=== PATIENT | female | born 1935 | race Caucasian/White ===

== ENCOUNTER 2017-02-21 10:14 | Emergency (ER) | payer OTHER ==
[2017-02-21 10:23] VITALS: BP 133/67; BMI 18.8
--- NOTE | 2017-02-21 11:06 | DR.GENAD ---
HPI - PCP Primary Care Physician: MIRIAM - HPI Comment HPI Comment: Headache; generalised weakness - Complaint/Symptoms Chief Complaint Doctors Comments: 1) She is undergoing treatment for UTI. Started on antibiotics on 02/17/17. She was having pelvic pain. Her antibiotics was twice a day. last dose was about 24 hrs.ago. 2) Her headache started early yesterday, she read up on the papers from the pharcy and it says the medication may cause H/A. She called into the pharmacy and was advised t stop taking the medication and go see her doctor today. She saw the WE[facility] LOSS SALES CONSULTANT at [facility] this morning and was referred to the E/R. The h/a is located on her crown and is throbbing. She denies dizziness but she claims her gait is off a bit. Chief Complaint:: PT C/O UTI, HEADACHE, WEAKNESS, AND DIZZINESS. PT STATES THIS HAS BEEN GOING ON SINCE FRIDAY. PT WAS DIAGNOSES WITH UTI FRIDAY AND SHE HAS BEEN TAKING BACTRIM BID. PT STATES SHE HAS BEEN JUST FEELING OF HER SYMPTOMS ARE GETTING WORSE OF THE COURSE OF THE PAST COUPLE OF DAYS. - Nurses notes reviewed Nurses Notes Review: Yes - Source History Provided: Patient - Mode of Arrival Mode of Arrival: Ambulatory - Timing Onset of Chief Complaint: 02/19/17 - Location Location: On crown PMH - PMH Past Medical History: Yes Past Medical History Comment: CYSTISIS Past Surgical History: Yes Surgical History: Appendectomy, Hysterectomy, Other Past Surgical History Comment: LEFT INGUINAL HERNIA REPAIR - Family History History of Family Medical Conditions: No - Social History Does any household member use tobacco: No Alcohol Use: None Do you use any recreational Drugs:: No Lives With: Alone Lives Where: Home - infectious screening In the last 2 months have you had wt loss of >10#?: NO Have you had fever, night sweats or hemotysis?: No Have you traveled outside the country in the last 6 months?: No Isolation: Standard ROS - Review of Systems Constitutional: Weakness Eyes: No Symptoms Reported ENTM: No Symptoms Reported Respiratoy: No Symptoms Reported Gastrointestinal/Abdominal: No Symptoms Reported Genitourinary: No Symptoms Reported Neurological: Headache Musculoskeletal: No Symptoms Reported Hematologic/Lymphatic: No Symptoms Reported Endocrine: No Symptoms Reported Psychiatric: No Symptoms Reported All Other Systems: Reviewed and Negative PE - Vital Signs Vitals: Pulse Rate 80 Respiratory Rate 18 Blood Pressure 133/67 O2 Sat by Pulse Oximetry 97 - General Limitations: No Limitations General Appearance: Alert, In No Apparent Distress - Head Head Exam: Normal Inspection - Eyes Eye exam: Normal Appearance - ENT ENT Exam: Normal Exam External Ear Exam: Normal External Inspection TM/Canal Exam: Bilateral Normal Nose Exam: Normal Nose Exam Mouth Exam: Normal Inspection Throat Exam: Normal Inspection - Neck Neck Exam: Normal Inspection - Chest Chest Inspection: Normal Inspection - Respiratory Respiratory Exam: Normal Lung Sounds Bilat Respiratory Exam: Bilateral Clear to Auscultation - Cardiovascular Cardiovascular Exam: Regular Rate, Normal Rhythm - Abdominal Exam Abdominal Exam: Normal Inspection, Normal Bowel Sounds, Soft - Extremities Extremities Exam: Normal Inspection - Back Back Exam: Normal Inspection - Neurologic Neurological Exam: Alert, Oriented X3 - Psychiatric Psychiatric Exam: Normal Affect, Normal Mood - Skin Skin Exam: Warm, Dry, Intact, Normal Color Course - Reevaluation 1st: Improved ROR - Labs Reviewed Result Diagrams: 02/21/17 11:20 02/21/17 11:20 Laboratory: WBC 8.4 X10^3/uL (3.6-10.0) 02/21/17 11:20 RBC 5.23 X10^6/uL (3.5-5.4) 02/21/17 11:20 Hgb 15.1 g/dL (12.0-16.0) 02/21/17 11:20 Hct 45.3 % (36.0-47.0) 02/21/17 11:20 MCV 86.5 fL (80.0-100.0) 02/21/17 11:20 MCH 28.8 pg (27.0-34.0) 02/21/17 11:20 MCHC 33.3 g/dL (33.0-35.0) 02/21/17 11:20 RDW 13.8 % (11.6-16.5) 02/21/17 11:20 Plt Count 195 X10^3/uL (150.0-450.0) 02/21/17 11:20 MPV 9.1 fL (7.4-11.0) 02/21/17 11:20 Neut % 71.9 % (42.0-75.0) 02/21/17 11:20 Lymph % 18.8 % (21.0-51.0) L 02/21/17 11:20 [place] % 7.8 % (0.0-13.0) 02/21/17 11:20 Eos % 0.8 % (0.9-2.9) L 02/21/17 11:20 Baso % 0.7 % (0.2-1.0) 02/21/17 11:20 Neut # 6.0 x10^3/uL (2.2-4.8) H 02/21/17 11:20 Lymph # 1.6 X10^3/uL (1.3-2.9) 02/21/17 11:20 [place] # 0.6 x10^3/uL (0.3-0.8) 02/21/17 11:20 Eos # 0.1 x10^3/uL (0.0-0.2) 02/21/17 11:20 Baso # 0.1 X10^3/uL (0.0-0.1) 02/21/17 11:20 Absolute Nucleated RBC 0.0 /100WBC 02/21/17 11:20 Sodium 137 mmol/L (136-145) 02/21/17 11:20 Corrected Sodium TNP 02/21/17 11:20 Potassium 4.8 mmol/L (3.5-5.1) 02/21/17 11:20 Chloride 101 mmol/L (98-107) 02/21/17 11:20 Carbon Dioxide 27.0 mmol/L (21-32) 02/21/17 11:20 BUN 28 mg/dL (7-18) H 02/21/17 11:20 Creatinine 1.03 mg/dL (0.55-1.02) H 02/21/17 11:20 Est GFR (MDRD) Af Amer > 60 (>60) 02/21/17 11:20 Est GFR (MDRD) Non-Af 55 (>60) L 02/21/17 11:20 Glucose 98 mg/dL (65-99) 02/21/17 11:20 Calcium 9.9 mg/dL (8.5-10.1) 02/21/17 11:20 Corrected Calcium TNP 02/21/17 11:20 Total Bilirubin 0.40 mg/dL (0.2-1.0) 02/21/17 11:20 AST 34 Units/L (15-37) 02/21/17 11:20 ALT 21 Units/L (12-78) 02/21/17 11:20 Alkaline Phosphatase 94 Units/L (46-116) 02/21/17 11:20 Total Protein 7.8 g/dL (6.4-8.2) 02/21/17 11:20 Albumin 3.9 g/dL (3.4-5.0) 02/21/17 11:20 Globulin 3.9 g/dL (2.5-4.5) 02/21/17 11:20 Albumin/Globulin Ratio 1.0 Ratio (1.1-2.1) L 02/21/17 11:20 TSH 3rd Generation 1.594 uIU/mL (0.358-3.74) 02/21/17 11:20 Specimen Type Clean catch urine 02/21/17 10:59 Urine Color Yellow (YELLOW) 02/21/17 10:59 Urine Appearance Clear (CLEAR) 02/21/17 10:59 Urine pH 6.0 (5.0 - 8.0) 02/21/17 10:59 Ur Specific [place] 1.015 (1.000-1.030) 02/21/17 10:59 Urine Protein 1+ (NEGATIVE) 02/21/17 10:59 Urine Glucose (UA) Negative (NEGATIVE) 02/21/17 10:59 Urine Ketones Negative (NEGATIVE) 02/21/17 10:59 Urine Occult Blood 4+ (NEGATIVE) 02/21/17 10:59 Urine Nitrite Negative (NEGATIVE) 02/21/17 10:59 Urine Bilirubin Negative (NEGATIVE) 02/21/17 10:59 Urine Urobilinogen Normal (NORMAL) 02/21/17 10:59 Ur Leukocyte Esterase 1+ (NEGATIVE) 02/21/17 10:59 Urine RBC Rare /HPF (NEGATIVE) 02/21/17 10:59 Urine WBC Rare /HPF (NEGATIVE) 02/21/17 10:59 Ur Squamous Epith Cells Rare /HPF (NEGATIVE) 02/21/17 10:59 Amorphous Sediment 1+ /HPF (NEGATIVE) 02/21/17 10:59 Urine Bacteria Negative /HPF (NEGATIVE) 02/21/17 10:59 Ur Culture Indicated? No/not indicated 02/21/17 10:59 - XRAY XRAY Interpreted by: Radiologist (CT Brain: no acute intracranial pathology) - Diagnosis Discharge Problem: Weakness, Headache, UTI (urinary tract infection) - Discharge Plan Disposition: 01 HOME, SELF-CARE Condition: Stable - Follow ups/Referrals Follow ups/Referrals: MDMisc [Primary Care Provider] - 3 days - Instructions
[2017-02-21 11:20] LABS: BILIRUBIN,URINE NEGATIVE (NEGATIVE); BLOOD/HEMOGLOBIN,URINE 4+ (NEGATIVE); GLUCOSE, URINE NEGATIVE (NEGATIVE); KETONES,URINE NEGATIVE (NEGATIVE); LEUKOCYTE ESTERASE ,URINE 1+ (NEGATIVE); NITRITES,URINE NEGATIVE (NEGATIVE); PROTEIN,URINE 1+ (NEGATIVE); UROBILINOGEN,URINE NORMAL (NORMAL)
[2017-02-21 11:33] LABS: BASOPHILS # (AUTO) 0.1 X10^3/uL (0.0-0.1); BASOPHILS % (AUTO) 0.7 % (0.2-1.0); EOSINOPHILS # (AUTO) 0.1 x10^3/uL (0.0-0.2); EOSINOPHILS % (AUTO) 0.8 % (0.9-2.9); HEMATOCRIT 45.3 % (36.0-47.0); HEMOGLOBIN 15.1 g/dL (12.0-16.0); LYMPHOCYTES # (AUTO) 1.6 X10^3/uL (1.3-2.9); LYMPHOCYTES % (AUTO) 18.8 % (21.0-51.0); MEAN CORPUSCULAR HEMOGLOBIN 28.8 pg (27.0-34.0); MEAN CORPUSCULAR HGB CONC 33.3 g/dL (33.0-35.0); MEAN CORPUSCULAR VOLUME 86.5 fL (80.0-100.0); MEAN PLATELET VOLUME 9.1 fL (7.4-11.0); MONOCYTES # (AUTO) 0.6 x10^3/uL (0.3-0.8); MONOCYTES % (AUTO) 7.8 % (0.0-13.0); NEUTROPHILS % (AUTO) 71.9 % (42.0-75.0); PLATELET COUNT 195 X10^3/uL (150.0-450.0); RED BLOOD COUNT 5.23 X10^6/uL (3.5-5.4); RED CELL DISTRIBUTION WIDTH 13.8 % (11.6-16.5); WHITE BLOOD COUNT 8.4 X10^3/uL (3.6-10.0)
[2017-02-21 11:41] LABS: APPEARANCE,URINE CLEAR (CLEAR); COLOR,URINE YELLOW (YELLOW)
[2017-02-21 11:42] LABS: AMORPHOUS SEDIMENT,UR 1+ /HPF (NEGATIVE); BACTERIA,URINE NEGATIVE /HPF (NEGATIVE); RBC,URINE RARE /HPF (NEGATIVE); SQUAMOUS EPITHELIAL CELL,UR RARE /HPF (NEGATIVE)
[2017-02-21 12:07] LABS: ALANINE AMINOTRANSFERASE 21 Units/L (12-78); ALBUMIN 3.9 g/dL (3.4-5.0); ALKALINE PHOSPHATASE 94 Units/L (46-116); ASPARTATE AMINO TRANSFERASE 34 Units/L (15-37); BLOOD UREA NITROGEN 28 mg/dL (7-18); CALCIUM 9.9 mg/dL (8.5-10.1); CHLORIDE 101 mmol/L (98-107); CREATININE 1.03 mg/dL (0.55-1.02); SODIUM 137 mmol/L (136-145); TOTAL PROTEIN 7.8 g/dL (6.4-8.2); TSH (3RD GENERATION) 1.594 uIU/mL (0.358-3.74); eGFR BLACK RACES > 60 (>60); eGFR NON BLACK RACES 55 (>60)
--- NOTE | 2017-02-21 12:14 | CT ---
HISTORY: Headache, dizziness Study: CT brain without contrast Comparison: No priors Technique: Multiple axial images of the brain were obtained from the skull base to the vertex without administra tion of IV contrast. Coronal and sagittal images are also reviewed. Dose reduction techniques utilize d automatic exposure control. Findings: No acute intraparenchymal hemorrhage or mass can be identified. No extra-axial fluid collections are seen. No alteration in the attenuation of the brain parenchyma can be identified to suggest acute o r subacute ischemic change. The ventricular system is symmetric and nondilated. There is chronic pe riventricular white matter disease observed and age-appropriate generalized atrophy. IMPRESSION: 1. No acute intracranial process can be identified. 2. 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 3. Age-appropriate atrophic changes are seen. Reported By:
== END 2017-02-21 12:41 | disposition home or self-care (01) ==
LOC: ER 10:34
DX: N39.0 Urinary tract infection, site not specified (principal); R53.1 Weakness; R51 Headache
CPT/HCPCS: 36415; 70450; 80053; 81001; 84443; 85025; 99282; 99283

== ENCOUNTER 2017-05-18 20:30 | Emergency (ER) | payer OTHER ==
[2017-05-18 20:41] VITALS: BP 105/70; BMI 19.2
--- NOTE | 2017-05-19 00:09 | DR.GENAD ---
HPI - PCP Primary Care Physician: NFD - Complaint/Symptoms Chief Complaint:: Pain in upper left back Self Treatment fo Chief Complaint: Patient DX with PNA yesterday and [facility]. Patient sees a DR in [place] that she is going to see tomorrow. [facility] told her that if anything changed she should go to the ER. - Nurses notes reviewed Nurses Notes Review: Yes - Source History Provided: Patient, Family Member - Timing Onset of Chief Complaint: 05/18/17 PMH - PMH Past Medical History: Yes Past Medical History Comment: had gastic ulcers once and hpyloi once. No other medical hx only OTC acid reflux medication Past Surgical History: Yes Surgical History: Appendectomy, Hysterectomy Past Surgical History Comment: Ing hernia repair - Family History History of Family Medical Conditions: No - Social History Does patient currently use any type of tobacco product: No Have you used tobacco products in the last 12 months: No Type of Tobacco Use: None Does any household member use tobacco: No Alcohol Use: None Do you use any recreational Drugs:: No Lives With: Alone Lives Where: Home - infectious screening In the last 2 months have you had wt loss of >10#?: NO Have you had fever, night sweats or hemotysis?: No Have you traveled outside the country in the last 6 months?: No Isolation: Standard PE - Vital Signs Vitals: Temperature 97.9 F Pulse Rate 88 Respiratory Rate 18 Blood Pressure 105/70 O2 Sat by Pulse Oximetry 98 ROR - Labs Reviewed Result Diagrams: 05/19/17 00:15 05/19/17 00:15 Laboratory: WBC 10.8 X10^3/uL (3.6-10.0) H 05/19/17 00:15 RBC 4.41 X10^6/uL (3.5-5.4) 05/19/17 00:15 Hgb 13.0 g/dL (12.0-16.0) 05/19/17 00:15 Hct 38.4 % (36.0-47.0) 05/19/17 00:15 MCV 87.0 fL (80.0-100.0) 05/19/17 00:15 MCH 29.4 pg (27.0-34.0) 05/19/17 00:15 MCHC 33.8 g/dL (33.0-35.0) 05/19/17 00:15 RDW 14.3 % (11.6-16.5) 05/19/17 00:15 Plt Count 171 X10^3/uL (150.0-450.0) 05/19/17 00:15 MPV 8.7 fL (7.4-11.0) 05/19/17 00:15 Neut % 70.0 % (42.0-75.0) 05/19/17 00:15 Lymph % 15.8 % (21.0-51.0) L 05/19/17 00:15 [place] % 12.7 % (0.0-13.0) 05/19/17 00:15 Eos % 1.1 % (0.9-2.9) 05/19/17 00:15 Baso % 0.4 % (0.2-1.0) 05/19/17 00:15 Neut # 7.5 x10^3/uL (2.2-4.8) H 05/19/17 00:15 Lymph # 1.7 X10^3/uL (1.3-2.9) 05/19/17 00:15 [place] # 1.4 x10^3/uL (0.3-0.8) H 05/19/17 00:15 Eos # 0.1 x10^3/uL (0.0-0.2) 05/19/17 00:15 Baso # 0.0 X10^3/uL (0.0-0.1) 05/19/17 00:15 Absolute Nucleated RBC 0.0 /100WBC 05/19/17 00:15 D-Dimer < 100 ng/mL (0-400) 05/19/17 00:15 Sodium 136 mmol/L (136-145) 05/19/17 00:15 Corrected Sodium TNP 05/19/17 00:15 Potassium 4.2 mmol/L (3.5-5.1) 05/19/17 00:15 Chloride 101 mmol/L (98-107) 05/19/17 00:15 Carbon Dioxide 27.5 mmol/L (21-32) 05/19/17 00:15 BUN 29 mg/dL (7-18) H 05/19/17 00:15 Creatinine 0.94 mg/dL (0.55-1.02) 05/19/17 00:15 Est GFR (MDRD) Af Amer > 60 (>60) 05/19/17 00:15 Est GFR (MDRD) Non-Af > 60 (>60) 05/19/17 00:15 Glucose 102 mg/dL (65-99) H 05/19/17 00:15 Calcium 9.3 mg/dL (8.5-10.1) 05/19/17 00:15 Corrected Calcium 9.9 mg/dL (8.5-10.1) 05/19/17 00:15 Total Bilirubin 0.30 mg/dL (0.2-1.0) 05/19/17 00:15 AST 18 Units/L (15-37) 05/19/17 00:15 ALT 18 Units/L (12-78) 05/19/17 00:15 Alkaline Phosphatase 68 Units/L (46-116) 05/19/17 00:15 Total Protein 7.0 g/dL (6.4-8.2) 05/19/17 00:15 Albumin 3.2 g/dL (3.4-5.0) L 05/19/17 00:15 Globulin 3.8 g/dL (2.5-4.5) 05/19/17 00:15 Albumin/Globulin Ratio 0.8 Ratio (1.1-2.1) L 05/19/17 00:15 - Discharge Plan Condition: Stable Prescriptions: Benzonatate [TESSALON PERLES *] 100 mg PO TID PRN #21 cap PRN Reason: Cough - Follow ups/Referrals Follow ups/Referrals: NFD,None [Primary Care Provider] - 3 days - Instructions Instructions: Chest Pain Observation, Community-Acquired Pneumonia, Adult, Easy -to-Read Additional Instructions: RETURN TO ED IF WORSE. CONTINUE WITH CIPRO.
[2017-05-19 00:26] LABS: BASOPHILS % (AUTO) 0.4 % (0.2-1.0); EOSINOPHILS # (AUTO) 0.1 x10^3/uL (0.0-0.2); EOSINOPHILS % (AUTO) 1.1 % (0.9-2.9); HEMATOCRIT 38.4 % (36.0-47.0); LYMPHOCYTES # (AUTO) 1.7 X10^3/uL (1.3-2.9); LYMPHOCYTES % (AUTO) 15.8 % (21.0-51.0); MEAN CORPUSCULAR HEMOGLOBIN 29.4 pg (27.0-34.0); MEAN CORPUSCULAR HGB CONC 33.8 g/dL (33.0-35.0); MEAN PLATELET VOLUME 8.7 fL (7.4-11.0); MONOCYTES # (AUTO) 1.4 x10^3/uL (0.3-0.8); MONOCYTES % (AUTO) 12.7 % (0.0-13.0); NEUTROPHILS # (AUTO) 7.5 x10^3/uL (2.2-4.8); PLATELET COUNT 171 X10^3/uL (150.0-450.0); RED BLOOD COUNT 4.41 X10^6/uL (3.5-5.4); RED CELL DISTRIBUTION WIDTH 14.3 % (11.6-16.5); WHITE BLOOD COUNT 10.8 X10^3/uL (3.6-10.0)
[2017-05-19 00:38] LABS: ALANINE AMINOTRANSFERASE 18 Units/L (12-78); ALBUMIN 3.2 g/dL (3.4-5.0); ALKALINE PHOSPHATASE 68 Units/L (46-116); ASPARTATE AMINO TRANSFERASE 18 Units/L (15-37); BLOOD UREA NITROGEN 29 mg/dL (7-18); CALCIUM 9.3 mg/dL (8.5-10.1); CARBON DIOXIDE 27.5 mmol/L (21-32); CHLORIDE 101 mmol/L (98-107); COR CA(FOR HYPOALB) 9.9 mg/dL (8.5-10.1); CREATININE 0.94 mg/dL (0.55-1.02); SODIUM 136 mmol/L (136-145); eGFR BLACK RACES > 60 (>60); eGFR NON BLACK RACES > 60 (>60)
[2017-05-19 01:59] LABS: CKMB % 2.1 % (<4); CREATINE KINASE 75 Units/L (26-192); CREATINE KINASE MB 1.6 ng/mL (0-4.0); TROPONIN I < 0.02 ng/mL (0-1.5)
== END 2017-05-19 02:10 | disposition home or self-care (01) ==
LOC: ER 20:30
DX: J18.9 Pneumonia, unspecified organism (principal); R07.89 Other chest pain; M54.89 Other dorsalgia
CPT/HCPCS: 36415; 80053; 82550; 82553; 84484; 85025; 85378; 93005; 93010; 99282; 99283